=== PATIENT | female | born 1970 | race Caucasian/White ===

== ENCOUNTER → 2017-01-16 | Outpatient (CLI) | payer BC ==
--- NOTE | 2017-01-16 17:59 | XR ---
EXAMINATION TYPE: XR chest 2V DATE OF EXAM: 01/16/2017 5:43 PM COMPARISON: 01/06/2014 HISTORY: Cough and congestion TECHNIQUE: Frontal and lateral views of the chest are obtained. FINDINGS: Heart and mediastinum are normal. Lungs are clear. Diaphragm is normal. Bony thorax is int act. IMPRESSION: Normal chest. No change.
== END ==
LOC: RADXRMAIN 17:08
PROVIDERS: ATTEND Internal Medicine
DX: R06.02 Shortness of breath (principal); R05 Cough
CPT/HCPCS: 71020

== ENCOUNTER 2017-05-15 10:47 | Observation (INO) | payer BC ==
--- NOTE | 2017-05-15 11:17 | ED ---
General Adult HPI - General Chief complaint: Chest Pain Stated complaint: chest pain Time Seen by Provider: 05/15/17 10:58 Source: patient, RN notes reviewed, old records reviewed Mode of arrival: wheelchair Limitations: no limitations - History of Present Illness Initial comments: This is a 39-year-old female here with chest pain. Patient presented with anterior heaviness on her chest. Shortness of breath worse when she takes a deep breath. No fevers, mild cough no congestion. No significant sick contacts history. patient has no cardiac risk factors no history of cardiac observation, no prior cardiac evaluation. no high blood pressure not questional no diabetes nonsmoker no family history. no recent travel history - Related Data Home Medications Medication Instructions Recorded Confirmed DULoxetine HCL [Cymbalta] 60 mg PO DAILY 05/15/17 05/15/17 Allergies Allergy/AdvReac Type Severity Reaction Status Date / Time No Known Allergies Allergy Verified 05/15/17 11:28 Review of Systems ROS Statement: Those systems with pertinent positive or pertinent negative responses have been documented in the HPI. ROS Other: All systems not noted in ROS Statement are negative. Past Medical History Past Medical History: No Reported History History of Any Multi-Drug Resistant Organisms: None Reported Past Surgical History: No Surgical Hx Reported Past Psychological History: Depression Smoking Status: Never smoker Past Alcohol Use History: Rare Past Drug Use History: None Reported General Exam Limitations: no limitations General appearance: alert, in no apparent distress, anxious Head exam: Present: atraumatic, normocephalic, normal inspection Eye exam: Present: normal appearance, PERRL, EOMI. Absent: scleral icterus, conjunctival injection, periorbital swelling ENT exam: Present: normal exam, mucous membranes moist Neck exam: Present: normal inspection. Absent: tenderness, meningismus, lymphadenopathy Respiratory exam: Present: normal lung sounds bilaterally. Absent: respiratory distress, wheezes, rales, rhonchi, stridor Cardiovascular Exam: Present: regular rate, normal rhythm, normal heart sounds. Absent: systolic murmur, diastolic murmur, rubs, gallop, clicks GI/Abdominal exam: Present: soft, normal bowel sounds. Absent: distended, tenderness, guarding, rebound, rigid Extremities exam: Present: normal inspection, full ROM, normal capillary refill. Absent: tenderness, pedal edema, joint swelling, calf tenderness Back exam: Present: normal inspection Neurological exam: Present: alert, oriented X3, CN II-XII intact Psychiatric exam: Present: normal affect, normal mood Skin exam: Present: warm, dry, intact, normal color. Absent: rash Course Vital Signs 05/15/17 05/15/17 10:51 12:12 Temperature 97.5 F L 97.1 F L Pulse Rate 80 72 Respiratory 20 18 Rate Blood Pressure 129/73 111/76 O2 Sat by Pulse 100 Oximetry - Reevaluation(s) Reevaluation #1: 05/15/17 12:59 Patient does remain with chest pain at this time EKG Findings - EKG Comments: EKG Findings:: EKG shows normal sinus rhythm rate of 71, NV 134, QRS 86, QTc 460 Medical Decision Making - Medical Decision Making 47 female the ER for evaluation. This patient is here for evaluation of chest pain, no cardiac risk factors although pain is typical in nature with heaviness on her chest worse with deep breathing. No fevers no cough or congestion, and patient is pain started 3 hours prior to arrival and has persisted throughout her emergency department stay, patient will be for cardiology evaluation and observation, serial troponins and telemetry - Lab Data Result diagrams: 05/15/17 11:48 05/15/17 11:48 Lab Results 05/15/17 05/15/17 05/15/17 Range/Units 11:48 11:48 11:48 WBC 5.8 (3.8-10.6) k/uL RBC 4.57 (3.80-5.40) m/uL Hgb 14.8 (11.4-16.0) gm/dL Hct 45.1 (34.0-46.0) % MCV 98.8 (80.0-100.0) fL MCH 32.4 (25.0-35.0) pg MCHC 32.8 (31.0-37.0) g/dL RDW 13.1 (11.5-15.5) % Plt Count 243 (150-450) k/uL Neutrophils % 65 % Lymphocytes % 28 % Monocytes % 4 % Eosinophils % 2 % Basophils % 1 % Neutrophils # 3.8 (1.3-7.7) k/uL Lymphocytes # 1.6 (1.0-4.8) k/uL Monocytes # 0.2 (0-1.0) k/uL Eosinophils # 0.1 (0-0.7) k/uL Basophils # 0.0 (0-0.2) k/uL Sodium 148 H (137-145) mmol/L Potassium 4.1 (3.5-5.1) mmol/L Chloride 111 H (98-107) mmol/L Carbon Dioxide 26 (22-30) mmol/L Anion Gap 11 mmol/L BUN 8 (7-17) mg/dL Creatinine 0.60 (0.52-1.04) mg/dL Est GFR (MDRD) Af Amer >60 (>60 ml/min/1.73 sqM) Est GFR (MDRD) Non-Af >60 (>60 ml/min/1.73 sqM) Glucose 80 (74-99) mg/dL Calcium 9.5 (8.4-10.2) mg/dL Magnesium 2.2 (1.6-2.3) mg/dL Total Bilirubin 0.6 (0.2-1.3) mg/dL AST 24 (14-36) U/L ALT 31 (9-52) U/L Alkaline Phosphatase 60 (38-126) U/L Total Creatine Kinase 47 (30-135) U/L CK-MB (CK-2) 0.6 (0.0-2.4) ng/mL CK-MB (CK-2) Rel Index 1.3 Troponin I <0.012 (0.000-0.034) ng/mL Total Protein 7.1 (6.3-8.2) g/dL Albumin 4.4 (3.5-5.0) g/dL Lipase 122 (23-300) U/L - Radiology Data Radiology results: report reviewed (Chest x-ray is negative for acute disease), image reviewed Critical Care Time Critical Care Time: Yes Total Critical Care Time: 31 Disposition Clinical Impression: Chest pain Disposition: ADMITTED IP TO THIS HOSP Condition: Undetermined Instructions: Chest Pain (ED) Referrals: Carrie Rueda MD [Primary Care Provider] - 1-2 days
[2017-05-15 12:12] LABS: Basophils % (A) 1 %; CH 32.5; CHCM 33.1; Eosinophils # (A) 0.1 k/uL (0-0.7); Eosinophils % (A) 2 %; HCT 45.1 % (34.0-46.0); HDW 2.57; HGB 14.8 gm/dL (11.4-16.0); Luc # (Auto) 0.09; Luc % (Auto) 2; Lymphocytes # (A) 1.6 k/uL (1.0-4.8); Lymphocytes % (A) 28 %; MCH 32.4 pg (25.0-35.0); MCHC 32.8 g/dL (31.0-37.0); MCV 98.8 fL (80.0-100.0); Mean Platelet Volume 7.3; Monocytes # (A) 0.2 k/uL (0-1.0); Monocytes % (A) 4 %; Neutrophils # (A) 3.8 k/uL (1.3-7.7); Neutrophils % (A) 65 %; RBC 4.57 m/uL (3.80-5.40); RDW 13.1 % (11.5-15.5); WBC 5.8 k/uL (3.8-10.6); WBC (Perox) 5.78
[2017-05-15 12:23] LABS: ALT 31 U/L (9-52); AST 24 U/L (14-36); Alkaline Phosphatase 60 U/L (38-126); Anion Gap 11 mmol/L; Blood Urea Nitrogen 8 mg/dL (7-17); Calcium 9.5 mg/dL (8.4-10.2); Carbon Dioxide 26 mmol/L (22-30); Chloride 111 mmol/L (98-107); Glucose 80 mg/dL (74-99); Magnesium 2.2 mg/dL (1.6-2.3); Non-African American GFR(MDRD) >60 (>60 ml/min/1.73 sqM); Potassium 4.1 mmol/L (3.5-5.1); Sodium 148 mmol/L (137-145); Total Bilirubin 0.6 mg/dL (0.2-1.3); Total Protein 7.1 g/dL (6.3-8.2)
--- NOTE | 2017-05-15 12:25 | XR ---
EXAMINATION TYPE: XR chest 2V DATE OF EXAM: 05/15/2017 COMPARISON: 01/16/2012 HISTORY: 47-year-old female with chest pain TECHNIQUE: PA and lateral views FINDINGS: The cardiomediastinal silhouette, aorta, and pulmonary vasculature are within normal limits. Mild per ibronchial cuffing especially in the right perihilar region. Otherwise, no consolidation or pleural e ffusion. IMPRESSION: Some peribronchial cuffing could reflect bronchitis or chronic asthma.
[2017-05-15 12:35] LABS: Creatine Kinase 47 U/L (30-135)
[2017-05-15 12:48] LABS: Creatine Kinase MB 0.6 ng/mL (0.0-2.4); Troponin I <0.012 ng/mL (0.000-0.034)
[2017-05-15 12:59] LABS: Partial Thromboplastin Time 25.1 sec (22.0-30.0); Prothrombin Time 10.4 sec (9.0-12.0)
[2017-05-15] MEDS ORDERED: NITROGLYCERIN SL TABS 0.4 MG TAB SUBLINGUAL PRN (13:27)
[2017-05-15] MEDS ORDERED: ASPIRIN 81 MG CHEW PO STA (13:27)
[2017-05-15] MEDS ORDERED: HEPARIN SODIUM,PORCINE 5,000 UNIT/ML 1 ML VIAL IV PRN (13:27)
[2017-05-15] MEDS ORDERED: HEPARIN SODIUM,PORCINE 5,000 UNIT/ML 1 ML VIAL IV ONE (13:27)
[2017-05-15] MEDS ORDERED: HEPARIN SODIUM,PORCINE/D5W PMX 25,000 UNIT in DEXTROSE/WATER 1 500ML.BAG IV SCH (13:30)
[2017-05-15] MEDS: DULoxetine HCL 60 MG CAPSULE.DR PO SCH (15:15)
[2017-05-15] MEDS: KETOROLAC 30 MG/ML 1 ML VIAL IVP PRN ×2 (15:16→21:10)
--- NOTE | 2017-05-15 19:48 | P.HPIM ---
History of Present Illness H&P Date: 05/15/17 47-year-old female with no significant past medical history including hypertension or CAD comes into the hospital with sudden onset left-sided chest pain. Patient states that she was getting dressed for work noted to have left- sided pain. On questioning patient states that she has significant pain with movement of her left shoulder it is reproducible in nature EKG does not reveal any ST-T wave changes per graph initial troponin was negative Patient states that her only family history is that her father has a pacemaker Currently patient's pain has been constant no alleviating or aggravating features except for what was described above 7 headaches blurry vision difficulty breathing nausea vomiting urinary urgency or frequency or diarrhea is reported Review of Systems All systems: negative (Noted in HPI) Past Medical History Past Medical History: No Reported History Additional Past Medical History / Comment(s): Cervical pain radiating to R shoulder and arm. History of Any Multi-Drug Resistant Organisms: None Reported Past Surgical History: No Surgical Hx Reported Additional Past Surgical History / Comment(s): Bilateral cataract removals with lens implants, skin graft from roof of mouth to outer front lower jaw. Past Anesthesia/Blood Transfusion Reactions: No Reported Reaction Smoking Status: Never smoker - Past Family History Mother Family Medical History: Hypertension Father Family Medical History: Diabetes Mellitus, Hypertension Additional Family Medical History / Comment(s): Father has a pacemaker. Medications and Allergies Home Medications Medication Instructions Recorded Confirmed Type DULoxetine HCL [Cymbalta] 60 mg PO DAILY 05/15/17 05/15/17 History Allergies Allergy/AdvReac Type Severity Reaction Status Date / Time No Known Allergies Allergy Verified 05/15/17 11:28 Physical Exam Vitals: Vital Signs Temp Pulse Pulse Resp BP BP Pulse Ox 05/15/17 16:00 98.2 F 63 16 99/65 97 05/15/17 14:27 97.5 F L 72 16 129/80 100 05/15/17 13:50 97.1 F L 73 18 109/74 98 05/15/17 12:58 97.1 F L 65 18 113/66 05/15/17 12:12 97.1 F L 72 18 111/76 05/15/17 10:51 97.5 F L 80 20 129/73 100 Intake and Output 05/15/17 05/15/17 05/15/17 06:59 14:59 22:59 Other: Voiding Method Toilet Weight 72 kg Patient Weight 05/16/17 06:59 Weight 72 kg Physical exam Gen. appearance oriented 3 in no distress Neck is supple no JVD Lungs good air entry clear to auscultation no rhonchi or wheezing Reproducible chest pain with movement of the left shoulder passively Heart S1-S2 heard regular rate and rhythm no murmurs appreciated Abdomen is soft nontender no organomegaly bowel sounds are intact Neurologically cranial nerves II-12 grossly intact no focal motor or sensory deficits noted Skin no abnormalities appreciated Results CBC & Chem 7: 05/15/17 11:48 05/15/17 11:48 Labs: Abnormal Lab Results - Last 24 Hours (Table) 05/15/17 Range/Units 11:48 Sodium 148 H (137-145) mmol/L Chloride 111 H (98-107) mmol/L Thrombosis Risk Factor Assmnt - Choose All That Apply Any of the Below Risk Factors Present?: Yes Each Factor Represents 1 point: Age 41-60 years Other Risk Factors: No Other congenital or acquired thrombophilia - If yes, enter type in comment: No Thrombosis Risk Factor Assessment Total Risk Factor Score: 1 Thrombosis Risk Factor Assessment Level: Low Risk Assessment and Plan Plan: #1 atypical chest pain likely musculoskeletal in nature Plan Rule out ACS Heparin will be discontinued We'll give the patient Toradol 30 g IV every 6 hours We'll obtain echo cardiac grams to rule out wall motion abnormalities patient will likely be discharged home in the next 24 hours pressures are stable This was discussed with the patient
[2017-05-15 19:58] LABS: Creatine Kinase 43 U/L (30-135)
[2017-05-15 20:12] LABS: Creatine Kinase MB 0.4 ng/mL (0.0-2.4); Troponin I <0.012 ng/mL (0.000-0.034)
[2017-05-16 00:57] LABS: Creatine Kinase 38 U/L (30-135)
[2017-05-16 01:10] LABS: Creatine Kinase MB 0.4 ng/mL (0.0-2.4); Troponin I <0.012 ng/mL (0.000-0.034)
[2017-05-16 07:20] VITALS: RESP 16
[2017-05-16 07:46] LABS: Mean Platelet Volume 7.3
[2017-05-16] MEDS: DULoxetine HCL 60 MG CAPSULE.DR PO SCH (08:13)
[2017-05-16 08:18] LABS: Cholesterol 133 mg/dL (<200); HDL Cholesterol 53 mg/dL (40-60); Triglycerides 61 mg/dL (<150)
[2017-05-16] MEDS ORDERED: ASPIRIN 325 MG TAB PO SCH (09:00)
[2017-05-16 12:22] VITALS: BP 121/75; PULSE 92; TEMP 98
--- NOTE | 2017-05-16 18:25 | P.DS ---
Providers Date of admission: 05/15/17 13:27 Attending physician: Nadira Rahman Consults: 05/15/17 13:27 Consult Physician Urgent Consulting Provider: Agueda Landaverde Consult Reason/Comments: cpy Do you want consulting provider notified?: Yes Primary care physician: Carrie Rueda [facility] Course: 47-year-old female with no significant past medical history including hypertension or CAD comes into the hospital with sudden onset left-sided chest pain. Patient states that she was getting dressed for work noted to have left- sided pain. On questioning patient states that she has significant pain with movement of her left shoulder it is reproducible in nature EKG does not reveal any ST-T wave changes per graph initial troponin was negative Patient states that her only family history is that her father has a pacemaker Currently patient's pain has been constant no alleviating or aggravating features except for what was described above 7 headaches blurry vision difficulty breathing nausea vomiting urinary urgency or frequency or diarrhea is reported 05/16/2017 Patient denies having any further episodes of chest pain is able to family without any reproducibility of symptoms Physical exam Gen. appearance oriented 3 in no distress Neck is supple no JVD Lungs good air entry clear to auscultation no rhonchi or wheezing Reproducible chest pain with movement of the left shoulder passively Heart S1-S2 heard regular rate and rhythm no murmurs appreciated Abdomen is soft nontender no organomegaly bowel sounds are intact Neurologically cranial nerves II-12 grossly intact no focal motor or sensory deficits noted Skin no abnormalities appreciated Assessment and Plan Plan: #1 atypical chest pain likely musculoskeletal in nature. Underwent a stress echocardiogram which was negative She will be given ibuprofen 800 mg 3 times a day ACS is ruled out discharged home in stable condition Patient Condition at Discharge: Undetermined Plan - Discharge Summary New Discharge Prescriptions: New Ibuprofen 800 mg PO TID PRN #20 tablet PRN Reason: Pain Continue DULoxetine HCL [Cymbalta] 60 mg PO DAILY Discharge Medication List DULoxetine HCL [Cymbalta] 60 mg PO DAILY 05/15/17 [History] Ibuprofen 800 mg PO TID PRN #20 tablet 05/16/17 [Rx] Follow up Appointment(s)/Referral(s): Carrie Rueda MD [Primary Care Provider] - 1-2 days Patient Instructions/Handouts: Chest Pain (ED) Discharge Disposition: HOME SELF-CARE
--- NOTE | 2017-05-16 20:14 | CONS ---
DATE OF CONSULTATION: 05/15/2017 Mrs. Garcia was seen for evaluation of chest pain. The patient has a history of hypertension. Patient was admitted through the emergency room with left-sided chest pain in the left anterior precordial upper part of the chest. Patient gives a history that she was getting dressed for work and noted left-sided chest pain. The pain was increasing with movement of her left shoulder. EKG done in the emergency room was negative. Patient denies any history of exertional chest discomfort. There is no previous cardiac history. Past medical history includes: 1. Bilateral cataracts removed with lens implants. 2. History of skin graft from the roof of the mouth. SMOKING STATUS: Never a smoker. Home medications include Cymbalta 60 mg daily. PHYSICAL EXAMINATION: VITAL SIGNS: Stable in the emergency room. Blood pressure is 107/60 mmHg. Heart rate is 80 per minute. HEAD/ENT: Negative. NECK: Supple. There is no increase in jugular venous pressure. Both the carotid pulses are felt. There is no bruit. Chest is symmetrical. HEART: The PMI is not felt. First and second heart sounds are normal. There is no evidence of any murmur. Lungs are clinically clear to auscultation and percussion. Abdomen is soft. Liver and spleen are not enlarged. Bowel sounds are heard. EXTREMITIES: Peripheral pulsations are 2+. EKG shows normal sinus rhythm without any acute ischemic changes. Patient's laboratory tests are normal. First troponin is normal. FINAL IMPRESSION: This patient's chest pains are suggestive of atypical chest pain, mostly musculoskeletal chest wall pain. We will do another EKG and cardiac troponin. If the troponins are normal, patient would be scheduled for stress echocardiographic study tomorrow. HOSSEIN
--- NOTE | 2017-05-17 06:37 | PN ---
This patient is feeling well. The patient is not having anymore chest discomfort. Patient's troponins are normal. Blood pressure is 115/86 mmHg. Heart S1 and S2 normal. Lungs are clinically clear to auscultation and percussion. We will schedule the patient for stress echocardiographic study. If the stress echo is normal, the patient can be discharged home. HOSSEIN
--- NOTE | 2017-05-17 09:53 | ECHOF ---
Referral Reason: MEASUREMENTS -------- HEIGHT: 170.2 cm WEIGHT: 71.7 kg BP: 107/60 IVSd: 1.0 cm (0.6 - 1.1) LVIDd: 4.6 cm (3.9 - 5.3) LVPWd: 1.0 cm (0.6 - 1.1) IVSs: 1.3 cm LVIDs: 3.0 cm LVPWs: 1.3 cm LAESV Index (A-L): 12.80 ml/m Ao Diam: 3.0 cm (2.0 - 3.7) AV Cusp: 1.4 cm (1.5 - 2.6) LA Diam: 1.8 cm (2.7 - 3.8) MV EXCURSION: 17.766 mm (> 18.000) MV EF SLOPE: 79 mm/s (70 - 150) EPSS: 1.4 cm MV E Stevenson: 0.46 m/s MV DecT: 283 ms MV A Stevenson: 0.51 m/s MV E/A Ratio: 0.91 FINDINGS -------- Sinus rhythm. This was a technically adequate study. Overall left ventricular systolic function is normal with, an EF between 60 - 65 %. The right ventricle is normal in size and function. Normal LA size by volume 22+/-6 ml/m2. The right atrium is normal in size. The aortic valve is trileaflet, and appears structurally normal. No aortic stenosis or regurgitation. The mitral valve leaflets are mildly thickened. There is trace mitral regurgitation. Trace tricuspid regurgitation present. There is no evidence of pulmonary hypertension. The right ventricular systolic pressure, as measured by Doppler, is {RVSP}. The pulmonic valve was not well visualized. The aortic root size is normal. Normal inferior vena cava with normal inspiratory collapse consistent with estimated right atrial pressure of 5 mmHg. The pericardium is normal. There is no pericardial effusion. CONCLUSIONS -------- 1. Sinus rhythm. 2. The right ventricular systolic pressure, as measured by Doppler, is {RVSP}. 3. The pulmonic valve was not well visualized. 4. The aortic root size is normal. 5. There is no pericardial effusion. 6. This was a technically adequate study. 7. Overall left ventricular systolic function is normal with, an EF between 60 - 65 %. 8. Normal LA size by volume 22+/-6 ml/m2. 9. The aortic valve is trileaflet, and appears structurally normal. No aortic stenosis or regurgitation. 10. The mitral valve leaflets are mildly thickened. 11. There is trace mitral regurgitation. 12. Trace tricuspid regurgitation present. 13. There is no evidence of pulmonary hypertension. JUNIOR RECRUITER: Galo Sherwood RDCS
--- NOTE | 2017-05-17 12:30 | PCN ---
DATE OF SERVICE: 05/16/2017 STRESS ECHOCARDIOGRAM INDICATION: Chest pain. BASELINE HEART RATE: 81 BASELINE BLOOD PRESSURE: 151/67 MAXIMUM HEART RATE: 160 MAXIMUM BLOOD PRESSURE: 170/96 85% MPHR: 146 100% MPHR: 172 METS: 8.1 MAXIMUM STAGE REACHED: 3 TOTAL EXERCISE TIME: 7:00 Baseline EKG shows sinus rhythm, normal axis, normal interval. Patient exercised on Antonio protocol for a total of 7 minutes achieving 8 METS, 93% of predicted maximum heart rate without chest pain or diagnostic ST-segment depression. Baseline echo shows normal left ventricular size wall motion and systolic function. Post-exercise, there is normal hyperdynamic response of all segments of myocardium noted. CONCLUSION: 1. Good exercise tolerance. 2. Negative stress test by EKG criteria. 3. Negative stress echo. [facility]
== END 2017-05-16 15:35 | disposition home or self-care (01) ==
LOC: EC 10:47 → 3OBS 13:27
PROVIDERS: ADMIT Hospitalist; ATTEND Hospitalist
DX: R07.89 Other chest pain (principal); H53.8 Other visual disturbances; R11.2 Nausea with vomiting, unspecified; R51 Headache; R39.15 Urgency of urination; M54.2 Cervicalgia; F32.9 Major depressive disorder, single episode, unspecified; R06.02 Shortness of breath; Z96.1 Presence of intraocular lens; Z83.3 Family history of diabetes mellitus; Z82.49 Family history of ischemic heart disease and other diseases of the circulatory system
CPT/HCPCS: 96376 ×3; 99291 ×2; 96365; 96375; 36415; 93005; 93017; 93306; 93350; 80061; 80053; 82550; 82553; 83690; 83735; 84484; 85025; 85049; 85610; 85730 ×2; 71020; G0378 ×2; J1644 ×2; J1885

== ENCOUNTER → 2020-01-20 | Outpatient (CLI) | payer BC ==
--- NOTE | 2020-01-21 08:13 | XR ---
EXAMINATION TYPE: XR cervical spine comp DATE OF EXAM: 01/20/2020 TECHNIQUE: Frontal, lateral, oblique, swimmers, and open mouth view of the cervical spine are obtaine d. HISTORY: M54.2 Cervicalgia, Neck Pain COMPARISON: None FINDINGS: The cervical spine is visualized in its entirety from C1 thru the top of T1 level, it is s atisfactory in alignment without evidence of acute fracture or dislocation. Multilevel uncovertebral hypertrophy and facet arthropathy are seen with anterior osteophytes and intervertebral disc space n arrowing. Oblique images demonstrate radiographic severe neural foraminal narrowing at C3-C4 on the r ight and moderate at C4-C5 as well as C5-C6 on the right. On the left there is severe radiographic ne ural foraminal narrowing at C4-C5 and C5-C6 with moderate at C6-C7. Vertebral body heights are mainta ined. Straightening of the usual cervical lordosis. The pre-vertebral soft tissue appears within norm al limits. The C1-C2 articulation is within normal limits on the open mouth view. IMPRESSION: 1. No acute fracture or dislocation is seen in the cervical spine. 2. Moderate to severe multilevel degenerative disc disease of the cervical spine as detailed above. 3. Straightening of the usual cervical lordosis may be on the basis of muscular strain/spasm or patie nt positioning.
== END | disposition home or self-care (01) ==
LOC: RADXRMAIN 17:03
PROVIDERS: ATTEND Internal Medicine
DX: M50.30 Other cervical disc degeneration, unspecified cervical region (principal)
CPT/HCPCS: 72050

== ENCOUNTER → 2020-12-25 | Outpatient (CLI) | payer BC ==
--- NOTE | 2020-12-26 07:35 | XR ---
EXAMINATION TYPE: XR chest 2V DATE OF EXAM: 12/25/2020 COMPARISON: 05/15/2017 HISTORY: Shortness of breath TECHNIQUE: Frontal and lateral views of the chest are obtained. FINDINGS: Scattered senescent parenchymal changes noted. Hyperinflation compatible with COPD. No evidence for infiltrate. No evidence for atelectasis. Heart size is stable. Mediastinal structures are stable and grossly unremarkable. No evidence for hilar prominence. Degenerative changes dorsal spine. IMPRESSION: 1. No evidence for acute pulmonary disease.
== END | disposition home or self-care (01) ==
LOC: RADXRMAIN 16:33
PROVIDERS: ATTEND Internal Medicine
DX: R07.9 Chest pain, unspecified (principal)
CPT/HCPCS: 71046

== ENCOUNTER → 2021-01-06 | Outpatient (CLI) | payer BC ==
--- NOTE | 2021-01-06 17:40 | XR ---
EXAMINATION TYPE: XR chest 2V DATE OF EXAM: 01/06/2021 COMPARISON: 12/25/2020 HISTORY: Chest pain TECHNIQUE: 2 views FINDINGS: Heart and mediastinum are normal. Lungs are clear. Diaphragm is normal. Bony thorax appears normal. IMPRESSION: Normal chest. No change.
== END | disposition home or self-care (01) ==
LOC: RADXRMAIN 16:54
PROVIDERS: ATTEND Internal Medicine
DX: R05 Cough (principal); R50.9 Fever, unspecified
CPT/HCPCS: 71046

== ENCOUNTER → 2024-03-06 | Outpatient (CLI) | payer BC ==
--- NOTE | 2024-03-06 12:40 | XR ---
EXAMINATION TYPE: XR ribs LT DATE OF EXAM: 03/06/2024 COMPARISON: Chest 01/06/2021 HISTORY: 53-year-old female R07.2, left rib pain TECHNIQUE: 4 views FINDINGS: No displaced left rib fractures seen. Mild degenerative change at the AC joint. Visualized left hemithorax appears clear. IMPRESSION: No displaced left rib fracture seen.
== END | disposition home or self-care (01) ==
LOC: RADXRMAIN 12:02
PROVIDERS: ATTEND Internal Medicine
DX: R07.81 Pleurodynia (principal); R07.2 Precordial pain; S29.8XXA Other specified injuries of thorax, initial encounter; W19.XXXA Unspecified fall, initial encounter

== ENCOUNTER → 2025-04-28 | Outpatient (CLI) | payer BC ==
--- NOTE | 2025-04-28 20:58 | XR ---
EXAMINATION TYPE: XR lumbar spine 2 or 3V DATE OF EXAM: 04/28/2025 5:08 PM COMPARISON: None. CLINICAL INDICATION: Female, 55 years old with history of M54.50 LOW BACK PAIN, UNSPECIFIED, pain x3 months TECHNIQUE: 3 view(s) obtained. FINDINGS: There are 5 lumbar-type vertebral bodies. Pedicles are intact. Disc heights are preserved. Vertebral body heights are preserved. Alignment is normal. IMPRESSION: 1. No acute osseous abnormality through the lumbar spine [facility], , 04/28/2025 8:56 PM
== END | disposition home or self-care (01) ==
LOC: RADXRMAIN 16:43
PROVIDERS: ATTEND Internal Medicine
DX: M54.50 Low back pain, unspecified (principal)
CPT/HCPCS: 72100